=== PATIENT | male | born 1935 | race Caucasian/White ===

== ENCOUNTER 2018-07-15 16:24 | Inpatient (IN) | payer BC, MEDICARE ==
[~2018-07-15] VITALS: Ht 165.1 cm; Wt 75.0 kg
[2018-07-15] MEDS ORDERED: SOD CHLORIDE 0.9% 1,000 ML IV STA (16:48)
--- NOTE | 2018-07-15 16:52 | ERD ---
ER Documentation Chief Complaint Chief Complaint GENERALIZED WEAKNESS WITH VOMITING/CONFUSION X 2 DAYS HPI This 83-year-old male who is here for weakness, confusion and vomiting. The family is with him at bedside and stated he is usually very oriented and is very active and can complete activities of daily living easily and has only mild dementia however over the past days been progressively getting more confused with visual hallucinations and confusion about orientation. He has few episodes of nonbilious nonbloody vomit, he denies any headache neck pain chest pain cough back pain or any focal neurological complaints. Does have some edema to his ankles ROS All systems reviewed and are negative except as per history of present illness. FmHx Family History: No coronary disease Physical Exam Vitals Vital Signs Date Temp Pulse Resp B/P (MAP) Pulse Ox O2 O2 Flow FiO2 Time Delivery Rate 07/15/18 98.8 70 18 184/86 96 16:30 (118) Physical Exam Const: Well-developed, well-nourished Head: Atraumatic, normocephalic Eyes: Normal Conjunctiva, PERRLA, EOMI, normal sclera, no nystagmus ENT: Normal External Ears, Nose and Mouth, moist mucus membranes. Neck: Full range of motion. No meningismus, no lymphadenopathy. Resp: Clear to auscultation bilaterally, no wheezing, rhonchi, rales Cardio: Regular rate and rhythm, no murmurs, S1 S2 present Abd: Soft, non tender x 4, non distended. Normal bowel sounds, no guarding or rebound, no pulsitile abdominal masses or bruits Skin: No petechiae or rashes, no ecchymosis , no maculopapular rash Back: No midline or flank tenderness Ext: No cyanosis, or edema, FROM x 4, normal inspection, neurovascularly intact x 4 Neur: Awake and alert, STR 5/5 x 4, sensation intact x 4, no focal findings, cerebellum intact Psych: Disoriented to time and person Departure Condition: Stable JAZLYN CANDELRAIO DO Jul 15, 2018 16:52
[2018-07-15] MEDS ORDERED: ALLO100T PO (17:07)
[2018-07-15] MEDS ORDERED: ASPI81TA52 PO (17:07)
[2018-07-15] MEDS ORDERED: SIMV40TA2 PO (17:07)
[2018-07-15] MEDS ORDERED: LOSA1TAB25 PO (17:07)
[2018-07-15] MEDS ORDERED: AZITHROMYCIN 500MG/NS (PMX) 250 ML IV STA (18:09)
[2018-07-15] MEDS ORDERED: CEFTRIAXONE 1 GM/50 ML (PMX) 50 ML IVPB STA (18:09)
[2018-07-15] MEDS ORDERED: SOD CHLORIDE 0.9% 1,000 ML IV SCH (19:00)
[2018-07-15] MEDS ORDERED: ONDANSETRON 4 MG INJ IV PRN ×2 (19:00→21:00)
[2018-07-15] MEDS ORDERED: ACETAMINOPHEN 325 MG TAB PO PRN (19:00)
[2018-07-15 20:52] VITALS: PULSE 83
[2018-07-15 20:57] VITALS: BP 179/86; PULSE 54; RESP 18
[2018-07-15] MEDS ORDERED: hydrALAzine 20 MG INJ IV PRN (21:00)
[2018-07-15] MEDS ORDERED: MAGNESIUM HYDROXIDE 30ML CUP PO PRN (21:00)
[2018-07-15] MEDS ORDERED: NON-FORMULARY/PATIENT OWN MED (Simvastatin* (Zocor*) 40 MG) PO SCH (21:00)
[2018-07-15] MEDS ORDERED: NACL 0.9% 3 ML SYG IV SCH (21:00)
[2018-07-15] MEDS ORDERED: morphine 2 MG INJ IV PRN (21:00)
[2018-07-15] MEDS ORDERED: DOCUSATE SODIUM 100 MG CAP PO PRN (21:00)
[2018-07-15] MEDS ORDERED: ALBUTEROL/IPRATROPIUM (NEB) 3 ML AMP HHN PRN (21:00)
[2018-07-15] MEDS ORDERED: NITROGLYCERIN (SL) 0.4 MG TAB SL PRN (21:00)
[2018-07-15] MEDS ORDERED: LORAZEPAM 2 MG INJ IV PRN (21:00)
[2018-07-15] MEDS ORDERED: HYDROCODONE/APAP (5/325) TAB PO PRN (21:00)
[2018-07-15 21:01] VITALS: Ht 165.1 cm; Wt 75.0 kg
[2018-07-15] MEDS: ACETAMINOPHEN 325 MG TAB PO PRN (22:26)
[2018-07-15] MEDS: SOD CHLORIDE 0.45% 1,000 ML IV SCH (22:50)
[2018-07-15] MEDS: HEPARIN 5,000 UNIT/1 ML VIAL SC SCH (23:27)
[2018-07-16] VITALS (13 sets, daily range): BP systolic 149–180; BP diastolic 66–76; PULSE 47–70; RESP 18–20
--- NOTE | 2018-07-16 01:29 | HP ---
Date/Time of Note Date/Time of Note DATE: 07/16/18 TIME: 01:28 Assessment/Plan VTE Prophylaxis SCD applied (from Nsg): No SCD contraindicated: other Pharmacological prophylaxis: heparin Lines/Catheters IV Catheter Type (from Nrs): [place] Assessment/Plan Hospital Course Assessment and plan: 83-year-old male presenting with weakness dizziness and vomiting, with findings of left-sided pneumonia and signs of asymptomatic bradycardia. 1. Pneumonia: Again this could explain patient's symptoms of weakness and dizziness and vomiting over the last 1 to 2 days. -Continue broad-spectrum antibiotics, check TSH, A1c, lipid panel, Tylenol PRN pain fevers -Follow-up final culture results and obtain PT consult 2. Hypertension: Blood pressure stable -Monitor, continue current medications 3. Bradycardia: Patient denies any prior history of any heart attack or arrhythmias. His heart rate has been in the mid 30s to mid 50 range, but asymptomatic EKG only shows signs of likely first-degree heart block. -Monitor for now, consider cardiology consult in a.m. if patient becomes symptomatic -We will order for echocardiogram as well Result Diagram: 07/15/18 1717 07/15/18 1717 Results 24hrs Laboratory Tests Test 07/15/18 16:55 07/15/18 17:17 07/15/18 18:15 07/15/18 22:23 POC Venous Lactate 1.7 White Blood Count 11.1 H Red Blood Count 4.27 L Hemoglobin 13.4 L Hematocrit 39.6 L Mean Corpuscular Volume 92.7 Mean Corpuscular 31.4 Hemoglobin Mean Corpuscular 33.8 Hemoglobin Concent Red Cell Distribution 12.3 Width Platelet Count 155 Mean Platelet Volume 10.9 H Immature Granulocytes % 0.400 Neutrophils % 82.9 H Lymphocytes % 8.9 L Monocytes % 7.4 Eosinophils % 0.1 Basophils % 0.3 Nucleated Red Blood 0.0 Cells % Immature Granulocytes # 0.040 H Neutrophils # 9.2 H Lymphocytes # 1.0 Monocytes # 0.8 Eosinophils # 0.0 Basophils # 0.0 Nucleated Red Blood 0.0 Cells # Prothrombin Time 12.6 Prothrombin Time Ratio 1.0 INR International 0.93 Normalized Ratio Activated 25.0 Partial Thromboplast Time Sodium Level 140 Potassium Level 3.6 Chloride Level 103 Carbon Dioxide Level 27 Anion Gap 10 Blood Urea Nitrogen 20 Creatinine 0.96 Est Glomerular Filtrat Rate mL/min Glucose Level 131 Calcium Level 9.8 Total Bilirubin 0.8 Direct Bilirubin 0.00 Indirect Bilirubin 0.8 Aspartate Amino 35 Transf (AST/SGOT) Alanine 38 Aminotransferase (ALT/SG PT) Alkaline Phosphatase 76 Troponin I < 0.012 Total Protein 7.9 Albumin 4.3 Globulin 3.60 H Albumin/Globulin Ratio 1.19 Urine Color YELLOW Urine Clarity CLEAR Urine pH 7.0 Urine Specific [place] 1.015 Urine Ketones NEGATIVE Urine Nitrite NEGATIVE Urine Bilirubin NEGATIVE Urine Urobilinogen NEGATIVE Urine Leukocyte Esterase NEGATIVE Urine Hemoglobin NEGATIVE Urine Glucose 1+ H Urine Total Protein NEGATIVE Free Thyroxine 1.14 HPI/ROS Admit Date/Time Admit Date/Time Jul 15, 2018 at 19:00 Hx of Present Illness 83-year-old male past medical history of hypertension, mild dementia, and a questionable old stroke, who presents with complaints of weakness, confusion and vomiting. Per family, the patient is usually very oriented and is very active and can complete activities of daily living easily and has only mild dementia. Apparently, however, over the last 1 to 2 days patient has been progressively getting more confused with visual hallucinations and confusion about orientation. He has few episodes of nonbilious nonbloody vomit, he denies any headache neck pain chest pain cough back pain or any focal neurological complaints. Does have some edema to his ankles. No upper or lower GI bleeding, fever chills, diarrhea const patient. When the patient came in he had a head CT that showed chronic right occipital lobe infarct, Extensive white matter disease compatible with chronic small vessel ischemia, and chronic lacunar infarcts basal ganglia and right and left external capsule, but overall no acute findings. However chest x-ray did show signs of a left lower lobe pneumonia and he received a dose of antibiotics in the ER. PMH/Family/Social Past Medical History Medications Current Medications IV Flush (NS 3 ml) 3 ml PER PROTOCOL IV ; Start 07/15/18 at 21:00 Ondansetron HCl (Zofran Inj) 4 mg Q6H PRN IV NAUSEA/VOMITING; Start 07/15/18 at 21:00 Acetaminophen (Tylenol Tab) 650 mg Q6H PRN PO .PAIN 1-3 OR TEMP Last administered on 07/15/18at 22:26; Admin Dose 650 MG; Start 07/15/18 at 21:00 Acetaminophen/ Hydrocodone Bitart ([place] (5/325)) 1 tab Q6H PRN PO .MOD PAIN 4- 6; Start 07/15/18 at 21:00 Morphine Sulfate (morphine) 2 mg Q4H PRN IV .SEVERE PAIN 7-10; Start 07/15/18 at 21:00 Docusate Sodium (Colace) 100 mg Q12H PRN PO .CONSTIPATION; Start 07/15/18 at 21:00 Magnesium Hydroxide (Milk Of Mag) 30 ml DAILY PRN PO .CONSTIPATION; Start 07/15/18 at 21:00 Heparin Sodium (Porcine) (Heparin (5000 Units/1ml)) 5,000 unit Q12 SC Last administered on 07/15/18at 23:27; Admin Dose 5,000 UNIT; Start 07/15/18 at 21:00 Sodium Chloride 1,000 ml @ 75 mls/hr [id number] IV Last administered on 07/15/18at 22:50; Admin Dose 75 MLS/HR; Start 07/15/18 at 20:49 Lorazepam (Ativan) 0.5 mg Q6H PRN IV ANXIETY; Start 07/15/18 at 21:00 Albuterol/ Ipratropium (Duoneb) 3 ml Q4H RESP THERAPY PRN HHN SHORTNESS OF BREATH; Start 07/15/18 at 21:00 Levofloxacin/ Dextrose 150 ml @ 100 mls/hr DAILY IVPB ; Start 07/16/18 at 09:00 Hydralazine HCl (Apresoline) 10 mg Q6H PRN IV ELEVATED BP; SBP > 160; Start 07/15/18 at 21:00 Nitroglycerin (Nitroglycerin (Sl Tab) 0.4 Mg) 1 tab Q5M PRN SL ANGINA; Start 07/15/18 at 21:00 Allopurinol (Zyloprim) 100 mg DAILY PO ; Start 07/16/18 at 09:00 Aspirin (Halfprin) 81 mg DAILY PO ; Start 07/16/18 at 09:00 Atorvastatin Calcium (Lipitor) 20 mg HS PO ; Start 07/16/18 at 21:00 Losartan Potassium (Cozaar) 100 mg DAILY PO ; Start 07/16/18 at 09:00 Hydrochlorothiazide (Hydrochlorothiazide) 25 mg DAILY PO ; Start 07/16/18 at 09:00 Coded Allergies: No Known Allergy (Unverified , 6/9/19) Past Surgical History Past Surgical Hx: other (Hernia) Social History Alcohol Use: none Smoking Status: Never smoker Drug Use: none Exam/Review of Systems Vital Signs Vitals Vital Signs Date Temp Pulse Resp B/P (MAP) Pulse Ox O2 O2 Flow FiO2 Time Delivery Rate 07/16/18 98.8 55 18 173/73 96 00:26 (106) 07/15/18 Room Air 20:57 Exam Exam Gen: Lying in bed, no acute distress Head: Atraumatic. Eyes: Normal Conjunctiva. ENT: Normal External Ears, Nose and Mouth. Neck: Full range of motion. No meningismus. Resp: Clear to auscultation bilaterally. Cardio: Bradycardic heart rate, regular Abd: Soft, nondistended, normal bowel sounds, non tender. Ext: No lower extremity edema bilaterally Neuro: No focal deficits FANY HI Jul 16, 2018 01:29
[2018-07-16] MEDS ORDERED: NON-FORMULARY/PATIENT OWN MED (Losartan-Hydrochlorothiazide (Losartan-HCTZ) 1 TAB) PO SCH (09:00)
[2018-07-16] MEDS ORDERED: LEVOFLOXACIN 750MG/D5W (PMX) 150 ML IVPB SCH (09:00)
[2018-07-16] MEDS: ALLOPURINOL 100 MG TAB PO SCH (09:07)
[2018-07-16] MEDS: ASPIRIN (EC) 81 MG TAB PO SCH (09:07)
[2018-07-16] MEDS: HYDROCHLOROTHIAZIDE 25 MG TAB PO SCH (09:08)
[2018-07-16] MEDS: LOSARTAN 50 MG TAB PO SCH (09:09)
[2018-07-16] MEDS: HEPARIN 5,000 UNIT/1 ML VIAL SC SCH ×2 (09:40→22:18)
[2018-07-16] MEDS: SOD CHLORIDE 0.45% 1,000 ML IV SCH (10:09)
--- NOTE | 2018-07-16 14:51 | PN ---
Date/Time of Note Date/Time of Note DATE: 07/16/18 TIME: 14:45 Assessment/Plan VTE Prophylaxis Risk score (from Ns)>0 risk: 5 SCD applied (from Nsg): Yes Pharmacological prophylaxis: heparin Lines/Catheters IV Catheter Type (from Nrs): Peripheral IV Urinary Cath still in place: No Assessment/Plan Hospital Course Alert Disoriented x 3 Unable to perform 3 item identification RRR Clear No distress Comfortable appearing CN II-XII in tact Gait normal Feet unkept, onnychomcycosis, strong pulses, no open ulcerations A/P: 83 yo male with cognitive impairment, hypertension who presented with GI symptoms and acute encephelopahty - GI symptoms resolved, perhpas viral process or self limited food intolerance, monitor - I suspect this patient suffers from dementia syndrome. 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 CT head was without acute process but does show moderate to severe encephelomalacia consistent with AD. We will consult neurology and complete workup for reversible causes of dementia - I do not suspect this patient has a bacterial infection so will discontinue antibiotics at this point and monitor - Will dc IV fluids, no indication - Continue home antihypertensives with HCTZ and losartan - PT/OT evaluation - Will likely require placement or home care, CM aware Result Diagram: 07/16/18 0615 07/16/18 0630 Results 24hrs Laboratory Tests Test 07/15/18 16:55 07/15/18 17:17 07/15/18 18:15 07/15/18 22:23 POC Venous Lactate 1.7 White Blood Count 11.1 H Red Blood Count 4.27 L Hemoglobin 13.4 L Hematocrit 39.6 L Mean Corpuscular 92.7 Volume Mean Corpuscular 31.4 Hemoglobin Mean Corpuscular 33.8 Hemoglobin Concent Red Cell Distribution 12.3 Width Platelet Count 155 Mean Platelet Volume 10.9 H Immature Granulocytes 0.400 % Neutrophils % 82.9 H Lymphocytes % 8.9 L Monocytes % 7.4 Eosinophils % 0.1 Basophils % 0.3 Nucleated Red Blood 0.0 Cells % Immature Granulocytes 0.040 H # Neutrophils # 9.2 H Lymphocytes # 1.0 Monocytes # 0.8 Eosinophils # 0.0 Basophils # 0.0 Nucleated Red Blood 0.0 Cells # Prothrombin Time 12.6 Prothrombin Time Ratio 1.0 INR International 0.93 Normalized Ratio Activated 25.0 Partial Thromboplast Time Sodium Level 140 Potassium Level 3.6 Chloride Level 103 Carbon Dioxide Level 27 Anion Gap 10 Blood Urea Nitrogen 20 Creatinine 0.96 Est Glomerular Filtrat Rate mL/min Glucose Level 131 Calcium Level 9.8 Total Bilirubin 0.8 Direct Bilirubin 0.00 Indirect Bilirubin 0.8 Aspartate Amino 35 Transf (AST/SGOT) Alanine 38 Aminotransferase (ALT/ SGPT) Alkaline Phosphatase 76 Troponin I < 0.012 Total Protein 7.9 Albumin 4.3 Globulin 3.60 H Albumin/Globulin Ratio 1.19 Urine Color YELLOW Urine Clarity CLEAR Urine pH 7.0 Urine Specific [place] 1.015 Urine Ketones NEGATIVE Urine Nitrite NEGATIVE Urine Bilirubin NEGATIVE Urine Urobilinogen NEGATIVE Urine Leukocyte NEGATIVE Esterase Urine Hemoglobin NEGATIVE Urine Glucose 1+ H Urine Total Protein NEGATIVE Free Thyroxine 1.14 Test 07/16/18 06:15 07/16/18 06:30 White Blood Count 8.8 # Red Blood Count 3.90 L Hemoglobin 12.3 L Hematocrit 37.0 L Mean Corpuscular 94.9 Volume Mean Corpuscular 31.5 Hemoglobin Mean Corpuscular 33.2 Hemoglobin Concent Red Cell Distribution 12.5 Width Platelet Count 116 #L Mean Platelet Volume 11.5 H Immature Granulocytes 0.300 % Neutrophils % 73.2 Lymphocytes % 18.6 Monocytes % 6.7 Eosinophils % 0.7 Basophils % 0.5 Nucleated Red Blood 0.0 Cells % Immature Granulocytes 0.030 # Neutrophils # 6.4 Lymphocytes # 1.6 Monocytes # 0.6 Eosinophils # 0.1 Basophils # 0.0 Nucleated Red Blood 0.0 Cells # Hemoglobin A1c 5.2 Sodium Level 140 Potassium Level 3.7 Chloride Level 108 Carbon Dioxide Level 27 Anion Gap 5 Blood Urea Nitrogen 19 Creatinine 0.95 Est Glomerular Filtrat Rate mL/min Glucose Level 95 Calcium Level 9.1 Phosphorus Level 2.9 Magnesium Level 2.0 Triglycerides Level 107 Cholesterol Level 95 L LDL Cholesterol, 43 Calculated HDL Cholesterol 31 Cholesterol/HDL Ratio 3.0 Thyroid Stimulating 0.563 Hormone (TSH) Subjective 24 Hr Interval Summary Free Text/Dictation Patient comfortable Only complaint is of pain in his bilateral great toes which seem to be related to his shoes Interview was difficult as he clearly shows signs of cognitive impairment. That says, he denies any SOB, dysuria, abdominal pain, etc His family at bedside state his mentation is improved from acute episode which happened yesterday Exam/Review of Systems Exam Vitals Vital Signs Date Temp Pulse Resp B/P (MAP) Pulse Ox O2 O2 Flow FiO2 Time Delivery Rate 07/16/18 51 12:45 07/16/18 97.9 20 159/72 96 Room Air 11:01 (101) Results Results 24hrs Laboratory Tests Test 07/15/18 16:55 07/15/18 17:17 07/15/18 18:15 07/15/18 22:23 POC Venous Lactate 1.7 White Blood Count 11.1 H Red Blood Count 4.27 L Hemoglobin 13.4 L Hematocrit 39.6 L Mean Corpuscular 92.7 Volume Mean Corpuscular 31.4 Hemoglobin Mean Corpuscular 33.8 Hemoglobin Concent Red Cell Distribution 12.3 Width Platelet Count 155 Mean Platelet Volume 10.9 H Immature Granulocytes 0.400 % Neutrophils % 82.9 H Lymphocytes % 8.9 L Monocytes % 7.4 Eosinophils % 0.1 Basophils % 0.3 Nucleated Red Blood 0.0 Cells % Immature Granulocytes 0.040 H # Neutrophils # 9.2 H Lymphocytes # 1.0 Monocytes # 0.8 Eosinophils # 0.0 Basophils # 0.0 Nucleated Red Blood 0.0 Cells # Prothrombin Time 12.6 Prothrombin Time Ratio 1.0 INR International 0.93 Normalized Ratio Activated 25.0 Partial Thromboplast Time Sodium Level 140 Potassium Level 3.6 Chloride Level 103 Carbon Dioxide Level 27 Anion Gap 10 Blood Urea Nitrogen 20 Creatinine 0.96 Est Glomerular Filtrat Rate mL/min Glucose Level 131 Calcium Level 9.8 Total Bilirubin 0.8 Direct Bilirubin 0.00 Indirect Bilirubin 0.8 Aspartate Amino 35 Transf (AST/SGOT) Alanine 38 Aminotransferase (ALT/ SGPT) Alkaline Phosphatase 76 Troponin I < 0.012 Total Protein 7.9 Albumin 4.3 Globulin 3.60 H Albumin/Globulin Ratio 1.19 Urine Color YELLOW Urine Clarity CLEAR Urine pH 7.0 Urine Specific [place] 1.015 Urine Ketones NEGATIVE Urine Nitrite NEGATIVE Urine Bilirubin NEGATIVE Urine Urobilinogen NEGATIVE Urine Leukocyte NEGATIVE Esterase Urine Hemoglobin NEGATIVE Urine Glucose 1+ H Urine Total Protein NEGATIVE Free Thyroxine 1.14 Test 07/16/18 06:15 07/16/18 06:30 White Blood Count 8.8 # Red Blood Count 3.90 L Hemoglobin 12.3 L Hematocrit 37.0 L Mean Corpuscular 94.9 Volume Mean Corpuscular 31.5 Hemoglobin Mean Corpuscular 33.2 Hemoglobin Concent Red Cell Distribution 12.5 Width Platelet Count 116 #L Mean Platelet Volume 11.5 H Immature Granulocytes 0.300 % Neutrophils % 73.2 Lymphocytes % 18.6 Monocytes % 6.7 Eosinophils % 0.7 Basophils % 0.5 Nucleated Red Blood 0.0 Cells % Immature Granulocytes 0.030 # Neutrophils # 6.4 Lymphocytes # 1.6 Monocytes # 0.6 Eosinophils # 0.1 Basophils # 0.0 Nucleated Red Blood 0.0 Cells # Hemoglobin A1c 5.2 Sodium Level 140 Potassium Level 3.7 Chloride Level 108 Carbon Dioxide Level 27 Anion Gap 5 Blood Urea Nitrogen 19 Creatinine 0.95 Est Glomerular Filtrat Rate mL/min Glucose Level 95 Calcium Level 9.1 Phosphorus Level 2.9 Magnesium Level 2.0 Triglycerides Level 107 Cholesterol Level 95 L LDL Cholesterol, 43 Calculated HDL Cholesterol 31 Cholesterol/HDL Ratio 3.0 Thyroid Stimulating 0.563 Hormone (TSH) Medications Medication Current Medications IV Flush (NS 3 ml) 3 ml PER PROTOCOL IV ; Start 07/15/18 at 21:00 Ondansetron HCl (Zofran Inj) 4 mg Q6H PRN IV NAUSEA/VOMITING; Start 07/15/18 at 21:00 Acetaminophen (Tylenol Tab) 650 mg Q6H PRN PO .PAIN 1-3 OR TEMP Last administered on 07/15/18at 22:26; Admin Dose 650 MG; Start 07/15/18 at 21:00 Acetaminophen/ Hydrocodone Bitart ([place] (5/325)) 1 tab Q6H PRN PO .MOD PAIN 4- 6; Start 07/15/18 at 21:00 Morphine Sulfate (morphine) 2 mg Q4H PRN IV .SEVERE PAIN 7-10; Start 07/15/18 at 21:00 Docusate Sodium (Colace) 100 mg Q12H PRN PO .CONSTIPATION; Start 07/15/18 at 21:00 Magnesium Hydroxide (Milk Of Mag) 30 ml DAILY PRN PO .CONSTIPATION; Start 07/15/18 at 21:00 Heparin Sodium (Porcine) (Heparin (5000 Units/1ml)) 5,000 unit Q12 SC Last administered on 07/16/18at 09:40; Admin Dose 5,000 UNIT; Start 07/15/18 at 21:00 Lorazepam (Ativan) 0.5 mg Q6H PRN IV ANXIETY; Start 07/15/18 at 21:00 Albuterol/ Ipratropium (Duoneb) 3 ml Q4H RESP THERAPY PRN HHN SHORTNESS OF BREATH; Start 07/15/18 at 21:00 Hydralazine HCl (Apresoline) 10 mg Q6H PRN IV ELEVATED BP; SBP > 160; Start 07/15/18 at 21:00 Nitroglycerin (Nitroglycerin (Sl Tab) 0.4 Mg) 1 tab Q5M PRN SL ANGINA; Start 07/15/18 at 21:00 Allopurinol (Zyloprim) 100 mg DAILY PO Last administered on 07/16/18at 09:07; Admin Dose 100 MG; Start 07/16/18 at 09:00 Aspirin (Halfprin) 81 mg DAILY PO Last administered on 07/16/18at 09:07; Admin Dose 81 MG; Start 07/16/18 at 09:00 Atorvastatin Calcium (Lipitor) 20 mg HS PO ; Start 07/16/18 at 21:00 Losartan Potassium (Cozaar) 100 mg DAILY PO Last administered on 07/16/18at 09:09; Admin Dose 100 MG; Start 07/16/18 at 09:00 Hydrochlorothiazide (Hydrochlorothiazide) 25 mg DAILY PO Last administered on 07/16/18at 09:08; Admin Dose 25 MG; Start 07/16/18 at 09:00 CAIN TOUSSAINT MD Jul 16, 2018 14:51
--- NOTE | 2018-07-16 15:50 | RADRPT ---
Echocardiogram Report Patient Name: GUS MCCULLOUGHPatient ID: [id number] : 1935 (83y 2m)Study Date: 07/16/2018 7:06:19 AM Gender: MAccession #: [id number] Tech: Ezequiel Taylor [facility] Location: [id number] Ref.Physician: FANY HI Height(Cm): BSA: Weight(Kg): Quality: AdequateOrder Physician: FANY HI Account #: Procedures: Echocardiographic Report: Transthoracic echocardiogram with complete 2D, M-Mode, and doppler examination. Indications: Bradycardia. Measurements: 2D/M Mode Doppler Measurement Value Normal Range Measurement Value Normal Range LVIDd 2D 4.0 [ 4.2 - 5.8 ] cm AV Peak [place] 1.7 [ 100.0 - 170.0 ] cm/sec LVIDs 2D 2.0 [ 2.5 - 4.0 ] cm AV Peak PG 11.0 [ 2.0 - 9.0 ] mmHg LVPWd 2D 1.0 [ 0.6 - 1.0 ] cm LVOT Peak [place] 0.7 [ 70.0 - 110.0 ] cm/sec IVSd 2D 1.1 [ 0.6 - 1.0 ] cm LVOT Peak PG 2.0 [ 2.0 - 6.0 ] mmHg AoR Diam 2D 2.6 [ 2.6 - 3.4 ] cm MV E Peak [place] 0.9 [ 60.0 - 130.0 ] cm/sec EDV 2D 70.8 [ 62.0 - 150.0 ] ml MV A Peak [place] 0.7 [ 100.0 - 120.0 ] cm/sec ESV 2D 12.4 [ 21.0 - 61.0 ] ml MV E/A 1.3 [ 0.8 - 1.5 ] ratio EF 2D 82.5 [ 52.0 - 72.0 ] percent MV Decel Time 222 [ 104 - 258 ] msec LA Dimen 2D 3.2 [ 3.0 - 4.0 ] cm Lat E` Fuad 0.1 [ 10.0 - 15.0 ] cm/sec Lateral E/E` 8.4 [ 1.0 - 2.0 ] ratio MV E/A 1.3 [ 0.8 - 1.5 ] ratio TR Peak Fu[place] 2.6 [ 100.0 - 280.0 ] cm/sec TR Peak PG 27.0 mmHg RVSP 37.0 [ 10.0 - 36.0 ] mmHg RA Pressure 10.0 mmHg Findings: Left Ventricle: Normal left ventricular systolic function. Normal left ventricular cavity size. Mild concentric left ventricular hypertrophy. Ejection fraction is visually estimated at 55 %. Tissue Doppler/Mitral Doppler indices are consistent with pseudonormalization with mildly elevated left atrial pressure (Stage II diastolic dysfunction). Right Ventricle: Normal right ventricular size. Normal right ventricular systolic function. Left Atrium: The left atrium is normal in size. Right Atrium: The right atrium is normal in size. Mitral Valve: Mitral valve leaflets appear mildly thickened. Mild mitral annular calcification. There is trace to mild mitral valve regurgitation. The regurgitation jet is eccentrically directed which may underestimate the severity of mitral regurgitation. Aortic Valve: No significant aortic stenosis or insufficiency. Aortic cusps appear mildly calcified. Tricuspid Valve: Normal appearance of the tricuspid valve. The estimated Peak RVSP is 37 mmHg. There is trace tricuspid regurgitation. Pulmonic Valve: Pulmonic valve not well visualized. Pericardium: Normal pericardium with no significant pericardial effusion. Aorta: Normal aortic root. IVC: Normal size and no respiratory collapse consistent with elevated right atrial pressure. Conclusions: Normal left ventricular systolic function. Normal left ventricular cavity size. Mild concentric left ventricular hypertrophy. Ejection fraction is visually estimated at 55 %. Tissue Doppler/Mitral Doppler indices are consistent with pseudonormalization with mildly elevated left atrial pressure (Stage II diastolic dysfunction). Mitral valve leaflets appear mildly thickened. Mild mitral annular calcification. There is trace to mild mitral valve regurgitation. The regurgitation jet is eccentrically directed which may underestimate the severity of mitral regurgitation. No significant aortic stenosis or insufficiency. Aortic cusps appear mildly calcified. Normal appearance of the tricuspid valve. The estimated Peak RVSP is 37 mmHg. There is trace tricuspid regurgitation. Electronically Signed By: Hans Lamb 2018-07-16 15:49:40 PDT
[2018-07-16] MEDS: ACETAMINOPHEN 325 MG TAB PO PRN (19:44)
[2018-07-16] MEDS ORDERED: ATORVASTATIN 20 MG TAB PO SCH (21:00)
[2018-07-16] MEDS ORDERED: POTASSIUM CHLORIDE (SR) 20 MEQ TAB PO STA (21:05)
[2018-07-16] MEDS ORDERED: ATROPINE 1 MG/10 ML SYRINGE IV PRN (21:30)
[2018-07-17] VITALS (9 sets, daily range): BP systolic 155–166; BP diastolic 69–80; PULSE 45–71; RESP 18–19
--- NOTE | 2018-07-17 08:24 | CONS ---
DATE OF ADMISSION: 07/15/2018 DATE OF CONSULTATION: 07/16/2018 REASON FOR CONSULTATION: Bilateral foot pain. REFERRING PHYSICIAN: Dr. Mikey Silva MD HISTORY OF PRESENT ILLNESS: This is an 83-year-old gentleman with foot pain and I was asked to evalu ate. The patient's main reason for hospitalization is a cognitive impairment, hypertension with GI sy mptoms and acute encephalopathy and treatment for pneumonia. PAST MEDICAL HISTORY: Includes hypertension. MEDICATIONS: 1. Atropine 0.5 mg. 2. Lipitor 20 mg p.o. at bedtime. 3. Allopurinol 100 mg p.o. daily. 4. Aspirin 81 mg daily. 5. Losartan 100 mg p.o. daily. 6. Hydrochlorothiazide 25 mg p.o. daily. 7. Colace 100 mg p.o. b.i.d. 8. Heparin. 9. Lorazepam 0.5 mg. 10. DuoNeb. 11. Hydralazine 10 mg. 12. Nitroglycerin. PAST SURGICAL HISTORY: Hernia. ALLERGIES: NO KNOWN DRUG ALLERGIES. SOCIAL HISTORY: No alcohol or tobacco use. REVIEW OF SYSTEMS: Complaints of right foot pain. Hurts with ambulation. The nail on the right olga lux pressing on the second toe. PHYSICAL EXAMINATION: VITAL SIGNS: Temperature is 97.7, pulse 70, respiratory rate 18, blood pressure 163/74, pulse oximet ry is 97%. EXTREMITIES: The patient is alert, oriented, talkative, regular respirations. EXTREMITIES: There is a 1 to 2+ pitting edema bilateral lower extremity. The feet have a fungal mal odor, tinea present interdigitally, onychogryphotic nail, right hallux nail was partially attached pr essing on the right second toe without any ulceration or callus formation. There is pain with palpat ion. No signs of cellulitis, lymphangitis. No pressure sores noted on bilateral posterior heel or a nkle, there is 1+ DP pulse bilaterally, 2+ popliteal pulse bilaterally. LABORATORIES: WBC 8.8, hemoglobin 12.3, hematocrit 37, platelets 116. Sodium 140, potassium 3.7, ch loride 108, CO2 27, BUN 19, creatinine is 0.95. Hemoglobin A1c is 5.2. Venous ultrasound normal com pressibility and flow bilateral lower extremity. Brain CT: No acute abnormality, no intracranial hemorrhage, mass or evidence of acute transcortical infarct, moderate to severe atrophy, chronic right occipital lobe infarct, extensive white matter dis ease compatible with chronic small vessel ischemia. Chronic lacunar infarcts, basal ganglia in the l eft external capsule. Chest x-ray with aortic atherosclerosis ASSESSMENT: 1. Onychomycosis. 2. Onychogryphosis. 3. Pain, bilateral feet. 4. Edema, with a negative venous Doppler for DVT. 5. Generalized weakness. PLAN: Patient seen and evaluated. He does have physical therapy scheduled. Would benefit from debr idement of nails and recommend bilateral foot cleansing and application of topical antifungal ointmen t. Will return for planned procedure. PATIENT EDUCATION: The patient and family education provided. Dictated By: GUSTAVO VAIL/ARLINE Conf#: [id number] DID#: [id number] CC: FANY HI;*EndCC*
[2018-07-17] MEDS ORDERED: CLOTRIMAZOLE 1% 30 GM CR TOP SCH (09:00)
[2018-07-17] MEDS: ASPIRIN (EC) 81 MG TAB PO SCH (09:18)
[2018-07-17] MEDS: LOSARTAN 50 MG TAB PO SCH (09:18)
[2018-07-17] MEDS: HYDROCHLOROTHIAZIDE 25 MG TAB PO SCH (09:18)
[2018-07-17] MEDS: ALLOPURINOL 100 MG TAB PO SCH (09:18)
[2018-07-17] MEDS: HEPARIN 5,000 UNIT/1 ML VIAL SC SCH (09:23)
--- NOTE | 2018-07-17 12:04 | CONSI ---
Assessment/Plan Assessment/Plan Assessment/Plan (Recall) 83M c/ reported Hx of mild dementia, who presents for evaluation of heightened confusion w/ hallucinations in the context of GI Sx.. CXR shows a possible infiltrate.. The clinical picture is consistent w/ an acute toxic-metabolic on chronic encephalopathy. As an aside, he likely has an underlying moderate Alzheimer's type dementia.. Head CT confirms moderate to severe an diffuse atrophy B12, TSH are wnl UA neg P: Continued medical management per primary [place] as necessary Limit sedating medications where possible Consider Aricept and/or Namenda, to be initiated as an outpatient Physical activity as tolerated Will follow clinically Consultation Date/Type/Reason Admit Date/Time Jul 15, 2018 at 19:00 Type of Consult Neurology Reason for Consultation ams Requesting Provider: CAIN TOUSSAINT MD Date/Time of Note DATE: 07/17/18 TIME: 12:00 Hx of Present Illness Patient is a relatively poor historian. It is elsewhere noted: 83-year-old male past medical history of hypertension, mild dementia, and a questionable old stroke, who presents with complaints of weakness, confusion and vomiting. Per family, the patient is usually very oriented and is very active and can complete activities of daily living easily and has only mild dementia. Apparently, however, over the last 1 to 2 days patient has been progressively getting more confused with visual hallucinations and confusion about orientation. He has few episodes of nonbilious nonbloody vomit, he denies any headache neck pain chest pain cough back pain or any focal neurological complaints. Does have some edema to his ankles. No upper or lower GI bleeding, fever chills, diarrhea const patient. When the patient came in he had a head CT that showed chronic right occipital lobe infarct, Extensive white matter disease compatible with chronic small vessel ischemia, and chronic lacunar infarcts basal ganglia and right and left external capsule, but overall no acute findings. However chest x-ray did show signs of a left lower lobe pneumonia and he received a dose of antibiotics in the ER. Objective Exam Vitals Vital Signs Date Temp Pulse Resp B/P (MAP) Pulse Ox O2 O2 Flow FiO2 Time Delivery Rate 07/17/18 97.8 67 18 157/80 95 11:36 (105) 07/17/18 21 01:08 07/16/18 Room Air 14:58 Intake and Output 07/16/18 07/16/18 07/17/18 1515:00 23:00 07:00 IntakeIntake Total 150 ml 720 ml BalanceBalance 150 ml 720 ml Exam PE: Gen Appearance: No Apparent Distress HEENT: Normocephalic Cardiovascular: Regular rate Abdomen: Soft Extremities: Dry NE: The patient was alert and oriented to person and hospital only.. unable to spell WORLD backwards, and unable to recall three words after a five minute delay. Language was normal. Fund of knowledge was adequate. Pupils were equal and reactive to light. There was no afferent pupillary defect. Visual dupont were normal. Funduscopic examination was limited. Extra-ocular movements were full. Ptosis was absent. There was no nystagmus. Facial sensation was normal. Face was symmetric with normal strength. Hearing was intact. Palate movements were normal. Neck strength was normal. There was normal tongue bulk and speed of movement. Tone was normal. Muscle bulk was normal. I did not see fasciculations. Arms and legs were grossly strong. Vibration sensation was normal. Temperature and pinprick sensation was normal. Rapid alternating movements were normal. There was no dysmetria. There was no intention tremor. Gait was deferred due to bedrest. Arm and leg reflexes were symmetric. Covington's sign was absent. Plantar responses were flexor. Results Result Diagram: 07/17/18 0559 07/17/18 0559 Results 24hrs Laboratory Tests Test 07/17/18 05:56 07/17/18 05:59 Vitamin B12 Level 769 White Blood Count 7.7 Red Blood Count 4.28 L Hemoglobin 13.5 L Hematocrit 39.8 L Mean Corpuscular Volume 93.0 Mean Corpuscular Hemoglobin 31.5 Mean Corpuscular Hemoglobin Concent 33.9 Red Cell Distribution Width 12.1 Platelet Count 149 # Mean Platelet Volume 10.8 H Immature Granulocytes % 0.400 Neutrophils % 67.5 Lymphocytes % 21.0 Monocytes % 8.8 Eosinophils % 1.4 Basophils % 0.9 Nucleated Red Blood Cells % 0.0 Immature Granulocytes # 0.030 Neutrophils # 5.2 Lymphocytes # 1.6 Monocytes # 0.7 Eosinophils # 0.1 Basophils # 0.1 Nucleated Red Blood Cells # 0.0 Sodium Level 141 Potassium Level 3.6 Chloride Level 109 Carbon Dioxide Level 25 Anion Gap 7 Blood Urea Nitrogen 17 Creatinine 0.99 Est Glomerular Filtrat Rate mL/min Glucose Level 98 Calcium Level 9.1 Past Medical History reviewed Home Meds Reported Medications Aspirin (Low Dose Aspirin) 81 Mg Tablet.dr, 81 MG PO DAILY, #30 TAB 07/15/18 Simvastatin* (Zocor*) 40 Mg Tablet, 40 MG PO QHS, #30 TAB 07/15/18 Allopurinol* (Allopurinol*) 100 Mg Tablet, 100 MG PO DAILY, TAB 07/15/18 Losartan-Hydrochlorothiazide (Losartan-HCTZ) 100-25 Mg Tab, 1 TAB PO DAILY, TAB 07/15/18 Medications Current Medications IV Flush (NS 3 ml) 3 ml PER PROTOCOL IV ; Start 07/15/18 at 21:00 Ondansetron HCl (Zofran Inj) 4 mg Q6H PRN IV NAUSEA/VOMITING; Start 07/15/18 at 21:00 Acetaminophen (Tylenol Tab) 650 mg Q6H PRN PO .PAIN 1-3 OR TEMP Last administered on 07/16/18at 19:44; Admin Dose 650 MG; Start 07/15/18 at 21:00 Acetaminophen/ Hydrocodone Bitart (Baylis (5/325)) 1 tab Q6H PRN PO .MOD PAIN 4- 6; Start 07/15/18 at 21:00 Morphine Sulfate (morphine) 2 mg Q4H PRN IV .SEVERE PAIN 7-10; Start 07/15/18 at 21:00 Docusate Sodium (Colace) 100 mg Q12H PRN PO .CONSTIPATION; Start 07/15/18 at 21:00 Magnesium Hydroxide (Milk Of Mag) 30 ml DAILY PRN PO .CONSTIPATION; Start 07/15/18 at 21:00 Heparin Sodium (Porcine) (Heparin (5000 Units/1ml)) 5,000 unit Q12 SC Last administered on 07/17/18at 09:23; Admin Dose 5,000 UNIT; Start 07/15/18 at 21:00 Lorazepam (Ativan) 0.5 mg Q6H PRN IV ANXIETY; Start 07/15/18 at 21:00 Albuterol/ Ipratropium (Duoneb) 3 ml Q4H RESP THERAPY PRN HHN SHORTNESS OF BREATH; Start 07/15/18 at 21:00 Hydralazine HCl (Apresoline) 10 mg Q6H PRN IV ELEVATED BP; SBP > 160 Last administered on 07/16/18 15:13; Admin Dose 10 MG; Start 07/15/18 at 21:00 Nitroglycerin (Nitroglycerin (Sl Tab) 0.4 Mg) 1 tab Q5M PRN SL ANGINA; Start 07/15/18 at 21:00 Allopurinol (Zyloprim) 100 mg DAILY PO Last administered on 07/17/18 09:18; Admin Dose 100 MG; Start 07/16/18 at 09:00 Aspirin (Halfprin) 81 mg DAILY PO Last administered on 07/17/18 09:18; Admin Dose 81 MG; Start 07/16/18 at 09:00 Atorvastatin Calcium (Lipitor) 20 mg HS PO Last administered on 07/16/18 21:40; Admin Dose 20 MG; Start 07/16/18 at 21:00 Losartan Potassium (Cozaar) 100 mg DAILY PO Last administered on 07/17/18 09:18; Admin Dose 100 MG; Start 07/16/18 at 09:00 Hydrochlorothiazide (Hydrochlorothiazide) 25 mg DAILY PO Last administered on 07/17/18 09:18; Admin Dose 25 MG; Start 07/16/18 at 09:00 Atropine Sulfate (Atropine (Syringe)) 0.5 mg PRN PRN IV LOW HEART RATE ; Start 07/16/18 at 21:30 Clotrimazole (Lotrimin Cr) 1 applic BID TOP Last administered on 07/17/18 09:19; Admin Dose 1 APPLIC; Start 07/17/18 at 09:00 Allergies: Coded Allergies: No Known Allergy (Unverified , 07/15/18) Past Surgical History Past Surgical Hx: other (Hernia) Social History Alcohol Use: none Smoking Status: Never smoker Drug Use: none REANTO GUERRA Jul 17, 2018 12:04
--- NOTE | 2018-07-17 12:58 | DS ---
Date/Time of Note Date/Time of Note DATE: 07/17/18 TIME: 12:56 Discharge Summary Admission/Discharge Info Admit Date/Time Jul 15, 2018 at 19:00 Discharge Date/Time Discharge Diagnosis Dementia Patient Condition: Stable Hospital Course 83 yo male with cognitive impairment and hypertension who presented with GI symptoms and acute encephelopahty. His GI symptoms spontaneously resolved. He was briefly given antibiotics but these were held as he showed no convincing evidence of bacterial infection Regarding encephelopathy, he was found to have encephelophalcia on CT imaging. TSH was wnl. B12 and RPR are pending at time of discharge. He was evaluated by neurology who felt that this was consistent with Alzheimers disease. He and family were encouraged to establishe care with a neurolgist as an outpatient. He was set up with home health and PT services. Home Meds Reported Medications Aspirin (Low Dose Aspirin) 81 Mg Tablet.dr, 81 MG PO DAILY, #30 TAB 07/15/18 Simvastatin* (Zocor*) 40 Mg Tablet, 40 MG PO QHS, #30 TAB 07/15/18 Allopurinol* (Allopurinol*) 100 Mg Tablet, 100 MG PO DAILY, TAB 07/15/18 Losartan-Hydrochlorothiazide (Losartan-HCTZ) 100-25 Mg Tab, 1 TAB PO DAILY, TAB 07/15/18 Primary Care Provider Not On Staff Doctor Pending Labs Laboratory Tests Test 07/17/18 05:56 07/17/18 05:59 Vitamin B12 Level 769 pg/ml (239-931) White Blood Count 7.7 10^3/ul (4.8-10.8) Red Blood Count 4.28 10^6/ul (4.70-6.10) Hemoglobin 13.5 g/dl (14.0-18.0) Hematocrit 39.8 % (42.0-52.0) Mean Corpuscular Volume 93.0 fl (82.0-101.0) Mean Corpuscular Hemoglobin 31.5 pg (29.0-33.0) Mean Corpuscular 33.9 g/dl (32.0-37.0) Hemoglobin Concent Red Cell Distribution Width 12.1 % (11.5-14.5) Platelet Count 149 10^3/UL (140-415) Mean Platelet Volume 10.8 fl (7.4-10.4) Immature Granulocytes % 0.400 % (0.001-0.429) Neutrophils % 67.5 % (39.0-77.0) Lymphocytes % 21.0 % (15.0-51.0) Monocytes % 8.8 % (0.0-11.0) Eosinophils % 1.4 % (0.0-7.0) Basophils % 0.9 % (0.0-2.0) Nucleated Red Blood Cells % 0.0 /100WBC (0.0-0.0) Immature Granulocytes # 0.030 10^3/ul (0.0-0.031) Neutrophils # 5.2 10^3/ul (1.6-7.5) Lymphocytes # 1.6 10^3/ul (0.8-2.9) Monocytes # 0.7 10^3/ul (0.3-0.9) Eosinophils # 0.1 10^3/ul (0.0-0.5) Basophils # 0.1 10^3/ul (0.0-0.1) Nucleated Red Blood Cells # 0.0 10^3/ul (0.0-0.0) Sodium Level 141 mmol/L (135-144) Potassium Level 3.6 mmol/L (3.5-5.1) Chloride Level 109 mmol/L (97-110) Carbon Dioxide Level 25 mmol/L (21-31) Anion Gap 7 (5-13) Blood Urea Nitrogen 17 mg/dl (7-20) Creatinine 0.99 mg/dl (0.61-1.24) Est Glomerular Filtrat mL/min (>60) Rate mL/min Glucose Level 98 mg/dl (70-220) Calcium Level 9.1 mg/dl (8.4-10.2) CAIN TOUSSAINT MD Jul 17, 2018 12:58
[2018-07-17] MEDS ORDERED: DAKINS 0.0125%(1/40) 473 ML SOLUTION TP ONE (13:30)
--- NOTE | 2018-07-17 16:53 | RADRPT ---
Vent Rate: 56 bpm RR Interval: 1068 msec NJ Interval: 373 msec QRS Duration: 97 msec QT Interval: 447 msec QTC Interval: 433 msec P-R-T [place]: 57 - 54 - 14 degrees Sinus rhythm...normal P axis, V-rate 50- 99 Prolonged NJ interval...NJ >220, V-rate 50- 90 Anteroseptal infarct, old...Q >40mS, V1-V2 Electronically Signed By: Adi Doty
--- NOTE | 2018-07-17 16:55 | RADRPT ---
Vent Rate: 47 bpm RR Interval: 1288 msec IA Interval: 396 msec QRS Duration: 100 msec QT Interval: 462 msec QTC Interval: 407 msec P-R-T [place]ier: 50 - 50 - 13 degrees Sinus bradycardia...rate< 50 Prolonged IA interval...IA >230, V-rate 30- 49 Anteroseptal infarct, old...Q >40mS, V1-V2 Electronically Signed By: Adi Doty
--- NOTE | 2018-07-17 17:30 | PN ---
DATE: 07/17/2018 SUBJECTIVE: The patient is being followed for bilateral foot pain. Has onychogryphosis of nails and recommended planned procedure. The patient is amenable and sterile instrumentation available. Also , the patient is pending discharge. PHYSICAL EXAMINATION: VITAL SIGNS: Temperature 98.1, pulse is 60, respiratory rate 19, blood pressure 159/69, pulse oximet ry is 94. GENERAL: Alert, oriented, in no acute distress, regular respiration. EXTREMITIES: Feet pain with palpation. Multiple jaxon's horns subungual hematoma, bilateral hallux wi th macerated debris fungal material 100% of all nails. ASSESSMENT: 1. Onychogryphosis. 2. Pain. 3. Onychomycosis. 4. Ingrown nail, right hallux. PLAN: Nails were debrided x10. The patient tolerated the procedure well. I recommend application o f clotrimazole b.i.d. Orders and recommendations to cleanse the feet daily with Dakin's. Can follow up as an outpatient as needed. Dictated By: GUSTAVO VAIL/ARLINE Conf#: [id number] DID#: [id number] CC: FANY HI; CAIN TOUSSAINT MD;*End*
== END 2018-07-17 18:00 | disposition home health service (06) | DRG 56 ==
LOC: E/R 16:24 → TEL 19:00
PROVIDERS: ADMIT Hospitalist; ATTEND Internal Medicine
DX: G30.9 Alzheimer's disease, unspecified (principal); J18.9 Pneumonia, unspecified organism; G93.40 Encephalopathy, unspecified; I10 Essential (primary) hypertension; R00.1 Bradycardia, unspecified; F02.80 Dementia in other diseases classified elsewhere, unspecified severity, without behavioral disturbance, psychotic disturbance, mood disturbance, and anxiety; B35.1 Tinea unguium; L60.2 Onychogryphosis
CPT/HCPCS: 36415; 70450; 71045; 80048; 80053; 80061; 81003; 82607; 83036; 83605; 83735; 84100; 84439; 84443; 84484; 85025; 85610; 85730; 86592; 87086; 93005; 93306; 93970; 96374; 96375; 97116; 97161; 97530; J0360; J0456; J0696; J1644; J1956; J2060; J7030